=== PATIENT | male | born 1970 | race Caucasian/White ===

== ENCOUNTER 2021-07-21 11:21 | Emergency (ER) | payer OTHER ==
[2021-07-21 12:33] LABS: Absolute Lymphocytes (CBC) 1.6 K/uL (0.7-4.9); Lymphocytes % 23.1 % (15.3-44.8); MPV 7.6 fL (7.6-11.3); Protime INR 0.95; RBC Red Blood Cell Count 4.83 M/uL (4.33-5.43)
[2021-07-21 12:43] LABS: ALT/SGPT 33 U/L (12-78); AST/SGOT 16 U/L (15-37); Alkaline Phosphatase 48 U/L (45-117); BUN Blood Urea Nitrogen 16 mg/dL (7-18); Bicarbonate 27 mmol/L (21-32); Bilirubin Total 0.3 mg/dL (0.2-1.0); Glucose Level 112 mg/dL (74-106); Magnesium 2.3 mg/dL (1.8-2.4); Protein, Total 7.3 g/dL (6.4-8.2); Sodium Level 137 mmol/L (136-145)
[2021-07-21 12:44] LABS: Bilirubin Direct < 0.1 mg/dL (0-0.2)
--- NOTE | 2021-07-21 14:01 | RAD REPORT ---
EXAM DESCRIPTION: RAD - Chest Single View - 07/21/2021 1:55 pm CLINICAL HISTORY: CHEST PAIN Chest pain. COMPARISON: No comparisons FINDINGS: Portable technique limits examination quality. The lungs are grossly clear. The heart is normal in size. No displaced fractures. IMPRESSION: No acute intrathoracic process suspected.
[2021-07-21 15:12] LABS: NT PRO-BNP 68 pg/mL (<125)
--- NOTE | 2021-07-21 16:39 | EDPHYS ---
Physician Documentation [facility] Name: Nadeem Tavarez Age: 51 yrs Sex: Male : 1970 Arrival Date: 07/21/2021 Time: 11:37 Bed 24 Private MD: ED Physician Pete Abbasi Historical: - Allergies: 07/21 11:42 No Known Allergies; ab2 - Home Meds: 11:42 None [Active]; ab2 - PMHx: 11:42 None; ab2 - PSHx: 11:42 None; ab2 - Immunization history:: Adult Immunizations up to date. - Social history:: Smoking status: Patient denies any tobacco usage or history of. Vital Signs: 11:39 BP 161 / 100; Pulse 77; Resp 18; Temp 98.8(TE); Pulse Ox 98% on R/A; Weight 113.4 kg; ab2 Height 6 ft. 1 in. (185.42 cm); Pain 3/10; 12:49 BP 134 / 87; Pulse 70; Resp 18; Pulse Ox 98% on R/A; ss7 13:36 BP 109 / 84; Pulse 59; Resp 18; Pulse Ox 99% on R/A; ss7 15:00 BP 139 / 100; Pulse 64; Resp 18; Pulse Ox 98% ; ss7 16:00 BP 131 / 88; Pulse 57; Resp 18; Pulse Ox 98% on R/A; ss7 11:39 Body Mass Index 32.98 (113.40 kg, 185.42 cm) ab2 MDM: 11:58 Patient medically screened. [facility] 16:37 Data reviewed: vital signs, nurses notes. Counseling: I had a detailed discussion with jihan the patient and/or guardian regarding: the historical points, exam findings, and any diagnostic results supporting the discharge/admit diagnosis, lab results, radiology results, the need for outpatient follow up, to return to the emergency department if symptoms worsen or persist or if there are any questions or concerns that arise at home. 07/21 12:01 Order name: Basic Metabolic Panel; Complete Time: 15:25 [facility] 07/21 12:01 Order name: CBC with Diff; Complete Time: 12:35 [facility] 07/21 12:01 Order name: LFT's; Complete Time: 15:25 [facility] 07/21 12:01 Order name: Magnesium; Complete Time: 15:25 [facility] 07/21 12:01 Order name: NT PRO-BNP; Complete Time: 15:25 [facility] 07/21 12:01 Order name: PT-INR; Complete Time: 12:35 [facility] 07/21 12:01 Order name: Troponin HS; Complete Time: 15:25 [facility] 07/21 12:01 Order name: XRAY Chest (1 view); Complete Time: 14:07 [facility] 07/21 12:01 Order name: EKG; Complete Time: 12:02 [facility] 07/21 12:01 Order name: Cardiac monitoring; Complete Time: 12:18 [facility] 07/21 12:01 Order name: D-Dimer; Complete Time: 12:35 [facility] 07/21 12:01 Order name: TSH; Complete Time: 15:25 [facility] 07/21 15:35 Order name: Troponin High Sensitivity [facility] 07/21 15:35 Order name: Troponin High Sensitivity; Complete Time: 16:32 [facility] 07/21 12:01 Order name: EKG - Nurse/Tech; Complete Time: 12:18 [facility] 07/21 12:01 Order name: IV Saline Lock; Complete Time: 12:15 [facility] 07/21 12:01 Order name: Labs collected and sent; Complete Time: 12:16 [facility] 07/21 12:01 Order name: O2 Per Protocol; Complete Time: 12:18 [facility] 07/21 12:01 Order name: O2 Sat Monitoring; Complete Time: 12:18 [facility] Administered Medications: No medications were administered Disposition Summary: 07/21/21 16:38 Discharge Ordered Location: Home [facility] Condition: Stable [facility] Diagnosis - Chest pain, unspecified [facility] Followup: [facility] - With: Private Physician - When: 2 - 3 days - Reason: Recheck today's complaints, Continuance of care, Re-evaluation by your physician Followup: [facility] - With: Alonzo Soares MD - When: 2 - 3 days - Reason: Recheck today's complaints, Continuance of care, Re-evaluation by your physician Discharge Instructions: - Discharge Summary Sheet [facility] - Nonspecific Chest Pain, Adult [facility] Forms: - Medication Reconciliation Form [facility] - Thank You Letter [facility] - Antibiotic Education [facility] - Prescription Opioid Use [facility] Prescriptions: - orphenadrine citrate 100 mg Oral Tablet Sustained Release - take 1 tablet by ORAL route 2 times per day As needed; 20 tablet; Refills: 0, jmm Product Selection Permitted Signatures: Dispatchisrael MedRon Monsalve PA PA jmm Bleininger, Alexis ab2
--- NOTE | 2021-07-21 16:39 | ER ---
Nurse's Notes [facility] Name: Nadeem Tavarez Age: 51 yrs Sex: Male : 1970 Arrival Date: 07/21/2021 Time: 11:37 Bed 24 Private MD: Diagnosis: Chest pain, unspecified Presentation: 07/21 11:39 Chief complaint: Patient states: "I'm having left sided chest and arm pain with a pins ab2 and needles in my left arm. I feel like im going to pass out. This all started yesterday morning.". Coronavirus screen: Vaccine status: Patient reports receiving the 2nd dose of the covid vaccine. Client denies travel out of the [place] in the last 14 days. At this time, the client does not indicate any symptoms associated with coronavirus-19. Ebola Screen: Patient negative for fever greater than or equal to 101.5 degrees Fahrenheit, and additional compatible Ebola Virus Disease symptoms Patient denies exposure to infectious person. Patient denies travel to an Ebola-affected area in the 21 days before illness onset. No symptoms or risks identified at this time. Initial Sepsis Screen: Does the patient meet any 2 criteria? No. Patient's initial sepsis screen is negative. Does the patient have a suspected source of infection? No. Patient's initial sepsis screen is negative. Risk Assessment: Do you want to hurt yourself or someone else? Patient reports no desire to harm self or others. Onset of symptoms is unknown. 11:39 Acuity: ASHANTI 3 ab2 11:39 Method Of Arrival: Ambulatory ab2 Triage Assessment: 11:42 General: Appears in no apparent distress. comfortable, Behavior is calm, cooperative, ab2 appropriate for age. Pain: Complains of pain in chest. Cardiovascular: Reports chest pain, Chest pain is described as mild, radiates to left arm(s). Historical: - Allergies: 11:42 No Known Allergies; ab2 - Home Meds: 11:42 None [Active]; ab2 - PMHx: 11:42 None; ab2 - PSHx: 11:42 None; ab2 - Immunization history:: Adult Immunizations up to date. - Social history:: Smoking status: Patient denies any tobacco usage or history of. Screenin:49 Abuse screen: Denies threats or abuse. Nutritional screening: No deficits noted. ss7 Tuberculosis screening: No symptoms or risk factors identified. Fall Risk IV access (20 points). Assessment: 12:49 General: Appears in no apparent distress. Behavior is calm, cooperative, appropriate ss7 for age. Pain: Denies pain. Neuro: Level of Consciousness is awake, alert, obeys commands, Oriented to person, place, time, situation, Cardiovascular: Heart tones S1 S2 Capillary refill < 3 seconds Pulses are all present. Rhythm is sinus rhythm. Respiratory: Breath sounds are clear bilaterally. GI: No deficits noted. Bowel sounds present X 4 quads. : No deficits noted. EENT: No deficits noted. Derm: No deficits noted. Musculoskeletal: No deficits noted. 12:50 Pain: Pain does not radiate. Pain began 1 day ago. ss7 Vital Signs: 11:39 BP 161 / 100; Pulse 77; Resp 18; Temp 98.8(TE); Pulse Ox 98% on R/A; Weight 113.4 kg; ab2 Height 6 ft. 1 in. (185.42 cm); Pain 3/10; 12:49 BP 134 / 87; Pulse 70; Resp 18; Pulse Ox 98% on R/A; ss7 13:36 BP 109 / 84; Pulse 59; Resp 18; Pulse Ox 99% on R/A; ss7 15:00 BP 139 / 100; Pulse 64; Resp 18; Pulse Ox 98% ; ss7 16:00 BP 131 / 88; Pulse 57; Resp 18; Pulse Ox 98% on R/A; ss7 11:39 Body Mass Index 32.98 (113.40 kg, 185.42 cm) ab2 ED Course: 11:37 Patient arrived in ED. ds1 11:42 Triage completed. ab2 11:42 Arm band placed on left wrist. ab2 11:51 Ron Dempsey PA is PHCP. jmm 11:51 Pete Abbasi MD is Attending Physician. jmm 12:16 Inserted saline lock: 20 gauge in right antecubital area, using aseptic technique. mb7 12:18 Charlee Harris, ABDULKADIR is Primary Nurse. ss7 12:49 Patient has correct armband on for positive identification. Bed in low position. Call ss7 light in reach. Side rails up X2. valance cutter on. 12:49 No provider procedures requiring assistance completed. Patient maintains SpO2 ss7 saturation greater than 95% on room air. 13:54 XRAY Chest (1 view) In Process Unspecified. EDMS 15:59 Troponin High Sensitivity Sent. ss7 16:01 Troponin High Sensitivity Sent. ss7 16:38 Alonzo Soares MD is Referral Physician. m 16:56 IV discontinued, intact. ss7 Administered Medications: No medications were administered Outcome: 16:38 Discharge ordered by . [facility] 16:55 Discharged to home ss7 16:55 Condition: good 16:55 Discharge instructions given to patient, Instructed on discharge instructions, follow up and referral plans. Demonstrated understanding of instructions, Prescriptions given X 1. 16:56 Patient left the ED. ss7 Signatures: Dispatcher [employer] EDMS Ron Dempsey PA PA Stephany Camejo1 Leighann De Guzman mb7 [employer] Mer[employer] ab2 Charlee Harris, RN RN ss7
[2021-07-21 17:51] VITALS: TEMP 98.8
[2021-07-21 17:54] VITALS: O2SAT 98
[2021-07-21 17:56] VITALS: BP 131/88
--- NOTE | 2021-07-22 12:52 | EKG ---
Test Date: 2021-07-21 Test Time: 11:44:41 Flasher Adjuster: MEASUREMENT RESULTS: Intervals: Rate: 69 OH: 142 QRSD: 104 QT: 378 QTc: 405 Novice: P: 35 OH: 142 QRS: 15 T: 58 INTERPRETIVE STATEMENTS: Normal sinus rhythm Normal ECG No previous ECG available for comparison Electronically Signed On 07-22-21 12:49:44 SYSTEM DEVELOPMENT ENGINEER by Willie Cornejo
== END 2021-07-21 16:56 | disposition home or self-care (01) ==
LOC: ER 11:21
DX: R07.9 Chest pain, unspecified (principal); M79.602 Pain in left arm
CPT/HCPCS: 36415; 71045; 80048; 80076; 83735; 83880; 84443; 84484; 85025; 85379; 85610; 93005; 99285